=== PATIENT | male | born 1965 | race Caucasian/White ===

== ENCOUNTER 2018-03-13 10:18 | Emergency (ER) | payer OTHER, BC ==
[~2018-03-13] VITALS: Ht 177.8 cm; Wt 83.9 kg
[2018-03-13] MEDS ORDERED: LANTUS100 UNIT/M SUBQ (10:27)
[2018-03-13] MEDS ORDERED: FENOFIBRATE160 MG PO (10:28)
[2018-03-13] MEDS ORDERED: GLUCOPHAGE1000 MG PO (10:28)
[2018-03-13] MEDS ORDERED: COZAAR 25 MG TA25 M1 PO (10:28)
[2018-03-13] MEDS ORDERED: VICTOZA0.6 MG/0.1 SUBQ (10:28)
[2018-03-13] MEDS ORDERED: FLEXERIL PO (11:14)
[2018-03-13] MEDS ORDERED: NAPROSYN500 MG PO (11:14)
[2018-03-13 11:51] VITALS: BP 129/91
== END 2018-03-13 11:52 | disposition home or self-care (01) ==
LOC: M.ERS 10:18
DX: S39.82XA Other specified injuries of lower back, initial encounter (principal); E11.9 Type 2 diabetes mellitus without complications; E78.5 Hyperlipidemia, unspecified; Z79.4 Long term (current) use of insulin; V49.49XA Driver injured in collision with other motor vehicles in traffic accident, initial encounter; Y93.89 Activity, other specified; Y92.89 Other specified places as the place of occurrence of the external cause; Y99.8 Other external cause status

== ENCOUNTER 2018-04-30 19:01 | Inpatient (IN) | payer BC ==
[~2018-04-30] VITALS: Ht 177.8 cm; Wt 88.0 kg
[~2018-04-30 19:01] MED LIST: COZAAR 25 MG TA25 M1 PO; FENOFIBRATE160 MG PO; FLEXERIL PO; GLUCOPHAGE1000 MG PO; LANTUS100 UNIT/M SUBQ; NAPROSYN500 MG PO; VICTOZA0.6 MG/0.1 SUBQ
[2018-04-30 19:10] VITALS: BP 168/91
[2018-04-30] MEDS ORDERED: OMEPRAZOLE20 M2 PO (19:20)
[2018-04-30 19:52] LABS: HEMATOCRIT 45.2 % (42.0-52.0); HEMOGLOBIN 16.4 gm/dL (14.0-18.0); MCH 30.4 pg (26.0-34.0); MCHC 36.3 g/dL (28.0-37.0); MCV 83.6 fL (80.0-100.0); MPV 10.4 fl. (7.2-11.1); NUCLEATED RBCS 1 /100WBC; PLATELET COUNT* 223 thou/uL (150-400); RBC 5.41 mil/uL (4.50-6.00); RDW-CV 14.8 % (10.5-14.5); WBC 6.3 thou/uL (4.0-11.0)
[2018-04-30 20:29] LABS: ABSOLUTE LYMPHOCYTES 1.6 thou/uL (0.8-5.3); ABSOLUTE MONOCYTES 0.2 thou/uL (0.0-1.2); ABSOLUTE NEUTROPHILS 4.5 thou/uL (1.6-8.1); METAMYELOCYTES 1 %; MYELOCYTES 2 %
[2018-04-30 20:31] LABS: PLATELET ESTIMATE ADEQUATE
[2018-04-30 20:38] LABS: LIPASE 86 U/L (73-393); NT-PRO BRAIN NAT PEPTIDE 230 pg/mL (<300); TROPONIN-I LEVEL <0.06 ng/mL (<0.06)
[2018-04-30 20:52] LABS: ANION GAP 15 mmol/L (7-16); BUN 18 mg/dL (7-18); CHLORIDE 98 mmol/L (98-107); CO2 23 mmol/L (21-32); CREATININE 0.5 mg/dL (0.6-1.3); GLUCOSE 376 mg/dL (70-99); SGOT 76 U/L (15-37); TOTAL BILIRUBIN 0.5 mg/dL (<0.1-1.0)
[2018-04-30 20:53] LABS: ALBUMIN 3.4 g/dL (3.4-5.0); ALKALINE PHOSPHATASE 63.6 U/L (46-116); SGPT 34.8 U/L (30-65); TOTAL PROTEIN 6.2 g/dL (6.4-8.2)
[2018-04-30 20:54] LABS: SODIUM 135.6 mmol/L (136-145)
[2018-04-30 20:58] LABS: POTASSIUM 6.4 mmol/L (3.5-5.1)
[2018-04-30 21:43] LABS: URINE BILIRUBIN NEGATIVE (Negative); URINE BLOOD NEGATIVE (Negative); URINE CLARITY CLEAR; URINE COLOR YELLOW; URINE GLUCOSE-RANDOM 3+ (Negative); URINE KETONES 2+ (Negative); URINE LEUKOCYTES-REFLEX NEGATIVE (Negative); URINE NITRITE-REFLEX NEGATIVE (Negative); URINE PROTEIN NEGATIVE (Negative); URINE UROBILINOGEN 0.2 E.U./dl (0.2-1.0)
[2018-04-30 21:59] LABS: POTASSIUM 4.2 mmol/L (3.5-5.1)
[2018-04-30 22:01] LABS: CREATININE 0.5 mg/dL (0.6-1.3)
[2018-04-30 23:10] VITALS: BP 156/95
[2018-04-30 23:30] VITALS: BP 157/90
[2018-05-01 01:21] LABS: HEMATOCRIT 41.6 % (42.0-52.0); HEMOGLOBIN 17.6 gm/dL (14.0-18.0); MCH 35.7 pg (26.0-34.0); MCHC 42.2 g/dL (28.0-37.0); MCV 84.6 fL (80.0-100.0); MPV 9.7 fl. (7.2-11.1); RBC 4.92 mil/uL (4.50-6.00); RDW-CV 14.5 % (10.5-14.5); WBC 6.2 thou/uL (4.0-11.0)
[2018-05-01 04:00] VITALS: BP 153/88
[2018-05-01 04:24] LABS: CREATININE 0.5 mg/dL (0.6-1.3)
[2018-05-01 04:25] LABS: CALCIUM 8.3 mg/dL (8.5-10.1); TOTAL BILIRUBIN 0.5 mg/dL (<0.1-1.0); TOTAL PROTEIN 5.8 g/dL (6.4-8.2)
[2018-05-01 04:26] LABS: ALBUMIN 3.4 g/dL (3.4-5.0)
[2018-05-01 08:00] VITALS: BP 149/91
[2018-05-01 12:56] VITALS: BP 144/99
[2018-05-01 14:33] LABS: CHOLESTEROL 318 mg/dL (<200); HDL CHOLESTEROL 19 mg/dL (>40); TC:HDL 16.7 Ratio (Not establshd); TRIGLYCERIDE 2575 mg/dL (<150); TROPONIN-I LEVEL <0.06 ng/mL (<0.06); VLDL 515 mg/dL (<40)
[2018-05-01 14:38] LABS: LDL CHOLESTEROL ND mg/dL (<100)
[2018-05-01 14:39] LABS: SERUM ASSESSMENT Gross Lipemia
[2018-05-01 15:23] LABS: AMP/METHAMP Negative (Negative); BARBITURATES Negative (Negative); BENZODIAZEPINES Negative (Negative); COCAINE Negative (Negative); METHADONE Negative (Negative); OPIATES Negative (Negative); PCP Negative (Negative); THC Negative (Negative)
[2018-05-01 16:35] VITALS: BP 127/88
[2018-05-01 17:07] LABS: GLYCOHEMOGLOBIN (HGB A1C) 9.8 % (4.8-5.6)
[2018-05-01 20:00] VITALS: BP 133/86
[2018-05-02] VITALS: BP 124/80
[2018-05-02 04:05] VITALS: BP 122/77
[2018-05-02 05:06] LABS: ABSOLUTE BASOPHILS 0.1 thou/uL (0.0-0.2); ABSOLUTE EOSINOPHILS 0.1 thou/uL (0.0-0.7); ABSOLUTE LYMPHOCYTES 1.3 thou/uL (0.8-5.3); ABSOLUTE MONOCYTES 0.4 thou/uL (0.0-1.2); BASOPHILS 0.9 %; EOSINOPHILS 1.9 %; HEMATOCRIT 43.4 % (42.0-52.0); LYMPHOCYTES 21.7 %; MCH 29.3 pg (26.0-34.0); MCHC 35.2 g/dL (28.0-37.0); MCV 83.3 fL (80.0-100.0); MPV 9.5 fl. (7.2-11.1); NUCLEATED RBCS 0 /100WBC; PLATELET COUNT* 161 thou/uL (150-400); POLYS 68.5 %; RBC 5.21 mil/uL (4.50-6.00); RDW-CV 14.7 % (10.5-14.5); WBC 5.9 thou/uL (4.0-11.0)
[2018-05-02 05:14] LABS: HEMOGLOBIN 15.3 gm/dL (14.0-18.0)
[2018-05-02 05:26] LABS: CALCIUM 7.6 mg/dL (8.5-10.1); CREATININE 0.8 mg/dL (0.6-1.3); POTASSIUM 3.9 mmol/L (3.5-5.1)
[2018-05-02 11:35] VITALS: BP 121/72
[2018-05-02 16:34] VITALS: BP 127/78
[2018-05-02 20:00] VITALS: BP 120/72
[2018-05-03] VITALS (17 sets, daily range): BP systolic 105–158; BP diastolic 63–95
--- NOTE | 2018-05-03 11:28 | EKG ---
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
--- NOTE | 2018-05-03 16:42 | 2DMMODE ---
[place] [address] 2 D/M-MODE ECHOCARDIOGRAM Name: LEONARDCHI GRECO Room: [address] IN .R.#: [id number] Admission: 04/30/18 Attend Phys: Nolberto Ramirez, Discharge: Date of : 67 Date of Service: 05/03/18 1642 Report #: [id number] THIS REPORT FOR: //name// APPROVED REPORT Study performed: 05/03/2018 14:13:09 EXAM: Comprehensive 2D, Doppler, and color-flow Echocardiogram Patient Location: Bedside BSA: 2.06 HR: 85 bpm BP: 131/89 mmHg Other Information Study Quality: Fair Indications Chest Pain 2D Dimensions LVEF(%): 51.95 (>50%) IVSd: 14.21 (7-11mm) LVOT Diam: 18.72 (18-24mm) LVDd: 38.32 mm PWd: 10.63 (7-11mm) Ascending Ao: 34.43 (22-36mm) LVDs: 28.31 (25-40mm) Aortic Root: 28.85 mm Simeon's LVEF: 51.95 % Volumes Left Atrial Volume (Systole) LA ESV Index: 15.80 mL/m2 Aortic Valve AoV Peak Cooper.: 1.05 m/s AO Peak Gr.: 4.45 mmHg LVOT Max P.63 mmHg AO Mean Gr.: 2.69 mmHg LVOT Mean P.16 mmHg LVOT Max V: 0.81 m/s AO V2 VTI: 17.13 cm LVOT Mean V: 0.49 m/s ISAIAH (VTI): 2.10 cm2 LVOT V1 VTI: 13.08 cm Mitral Valve E/A Ratio: 0.88 MV Decel. Time: 248.63 ms MV E Max Cooper.: 0.72 m/[place] [address] 2 D/M-MODE ECHOCARDIOGRAM Name: CHI SANTIAGO Room: [address] IN [facility]#: [id number] Admission: 04/30/18 Attend Phys: Nolberto Ramirez, Discharge: Date of : 67 Date of Service: 05/03/18 1642 Report #: [id number] MV PHT: 72.10 ms MVA (PHT): 3.05 cm2 TDI E/Lateral E': 8.00 E/Medial E': 9.00 Medial E' Cooper.: 0.08 m/s Lateral E' Cooper.: 0.09 m/s Pulmonary Valve PV Peak Cooper.: 0.84 m/s PV Peak Gr.: 2.81 mmHg Tricuspid Valve RAP Estimate: 5.00 mmHg TR Peak Gr.: 7.12 mmHg RVSP: 12.12 mmHg PA Pressure: 12.12 mmHg Left Ventricle The left ventricle is normal size. There is normal LV segmental wall motion. There is normal left ventricular wall thickness. Left ventricular systolic function is normal. The left ventricular ejection fraction is within the normal range. LVEF is 60-65%. Grade I - abnormal relaxation pattern. Right Ventricle The right ventricle is normal size. The right ventricular systolic function is normal. Atria The left atrium size is normal. The right atrium size is normal. Aortic Valve The aortic valve is normal in structure. No aortic regurgitation is present. There is no aortic valvular stenosis. Mitral Valve The mitral valve is normal in structure. There is no mitral valve regurgitation noted. No evidence of mitral valve stenosis. Tricuspid Valve The tricuspid valve is normal in structure. Trace tricuspid regurgitation. Pulmonic Valve The pulmonary valve is normal in structure. There is no pulmonic [place] [address] 2 D/M-MODE ECHOCARDIOGRAM Name: CHI SANTIAGO Room: [address] IN ..#: [id number] Admission: 04/30/18 Attend Phys: Nolberto Ramirez, Discharge: Date of : 67 Date of Service: 05/03/18 1642 Report #: [id number] Great Vessels The aortic root is normal in size. IVC is normal in size and collapses with >50% inspiration Pericardium There is no pericardial effusion. <Conclusion> The left ventricle is normal size. There is normal left ventricular wall thickness. Left ventricular systolic function is normal. The left ventricular ejection fraction is within the normal range. LVEF is 60-65%. Grade I - abnormal relaxation pattern. The right ventricle is normal size. The left atrium size is normal. The aortic valve is normal in structure. The mitral valve is normal in structure. The tricuspid valve is normal in structure. IVC is normal in size and collapses with >50% inspiration There is no pericardial effusion. There is normal LV segmental wall motion. <ELECTRONICALLY SIGNED> By: Farhan Lucio MD, FACC 05/03/181641 41 41 Farhan Lucio MD, FACC /INF
--- NOTE | 2018-05-03 18:37 | EKG ---
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 : 1965 Requested By: Nolberto Ramirez Order Number: [id number] Reading MD: Farhan Lucio Measurements Intervals [place] Rate: 99 P: 50 [place]: 173 QRS: -61 QRSD: 136 T: 19 QT: 396 QTc: 509 Interpretive Statements Sinus rhythm Nonspecific IVCD with LAD Baseline wander in lead(s) I,II,III,aVR,V3 No previous ECG available for comparison Electronically Signed On 05-03-2018 18:37:29 CDT by Farhan Lucio [email or web address] <ELECTRONICALLY SIGNED> By: Farhan Lucio MD, [facility] 05/03/18 1837 1339 1339 Farhan Lucio MD, [facility] /EPI
--- NOTE | 2018-05-03 18:45 | EKG ---
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1965 Requested By: Farhan Lucio Order Number: [id number] Wagner MD: Farhan Lucio Measurements Intervals [place] Rate: 80 P: 46 [place]: 178 QRS: -33 QRSD: 125 T: 14 QT: 404 QTc: 466 Interpretive Statements Sinus rhythm IVCD, consider atypical RBBB Compared to ECG 04/30/2018 19:07:42 Left anterior fascicular block no longer present Electronically Signed On 05-03-2018 18:44:56 CDT by Farhan Lucio [email or web address] <ELECTRONICALLY SIGNED> By: Farhan Lucio MD, [facility] 05/03/18 1844 1501 1501 Farhan Lucio MD, [facility] /EPI
[2018-05-04] VITALS (10 sets, daily range): BP systolic 113–159; BP diastolic 61–85
[2018-05-04 05:41] LABS: HEMATOCRIT 42.9 % (42.0-52.0); HEMOGLOBIN 14.5 gm/dL (14.0-18.0); MCH 28.6 pg (26.0-34.0); MCHC 33.7 g/dL (28.0-37.0); MCV 84.9 fL (80.0-100.0); MPV 9.8 fl. (7.2-11.1); RBC 5.06 mil/uL (4.50-6.00); RDW-CV 14.7 % (10.5-14.5); WBC 4.7 thou/uL (4.0-11.0)
[2018-05-04 05:42] LABS: CALCIUM 8.6 mg/dL (8.5-10.1); CREATININE 0.7 mg/dL (0.6-1.3); POTASSIUM 3.5 mmol/L (3.5-5.1); TOTAL BILIRUBIN 0.5 mg/dL (<0.1-1.0); TOTAL PROTEIN 6.1 g/dL (6.4-8.2); TROPONIN-I LEVEL 0.24 ng/mL (<0.06)
--- NOTE | 2018-05-04 10:38 | EKG ---
[place] [address] ELECTROCARDIOGRAM REPORT Name: CHI SANTIAGO Room: [address] ADM IN M.R.#: [id number] Admission: 04/30/18 Attend Phys: Nolberto Ramirez MD Discharge: Date of : 67 Report #: [id number] THIS REPORT FOR: //name// 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
[2018-05-04] MEDS ORDERED: ASPIR 8181 MG PO (10:40)
[2018-05-04] MEDS ORDERED: EFFIENT10 MG PO (10:41)
[2018-05-04] MEDS ORDERED: NITROGLYCERIN0.4 MG SUBLING (10:42)
[2018-05-04] MEDS ORDERED: ATORVASTATIN CA40 MG PO (10:44)
--- NOTE | 2018-05-04 13:11 | CARD ---
[address] [address] CARDIAC CATH REPORT Name: CHI SANTIAGO Room: [address] IN .R.#: [id number] Admission: 04/30/18 Attend Phys: Nolberto Ramirez MD Discharge: Date of : 67 Report #: [id number] THIS REPORT FOR: //name// APPROVED REPORT Study performed: 05/03/2018 11:07:20 Patient Details Patient Status: In-Patient Room #: The patient is a 53 year-old male Event Personnel Farhan Lucio Gear Shaper Set Up Operator, Tammy Gates Network Infrastructure Architect, Awa Palomares, Martina Flynn RTDestiny Scrub Procedures Performed Art Access - R femoral artery* , Left Heart CatheterizationLeft Heart Cath w/or w/o Coronaries [id number] [facility] w/wo Plasty Single CIRC [id number] [facility] [address] w/wo Plasty Single RCA [id number] Indication Unstable angina Risk Factors Family History, Hypercholesterolemia, Hypertension Admission/Lab Medications/Medications given during procedure Platelet Aff. Inhib., Heparin Unfract. Procedure Narrative The patient was brought electively to the Cardiac Catheterization Laboratory and was prepped and draped in a sterile manner. The right femoral was infiltrated with 2% Lidocaine subcutaneous anesthesia. A 6fr Ultimum Sheath sheath was inserted into the right femoral artery. Coronary angiography was performed using coronary diagnostic catheters. The right coronary system was accessed and visualized with a 6fr JR 4 catheter. The left coronary system was accessed and visualized with a 6fr JL 4 catheter. The left ventricle was accessed and visualized with a 6fr Straight pigtail catheter. Left ventricular/Aortic Valve gradient assessed via catheter pullback. Left ventriculogram was performed in BHATIA projection. Pre-demployment femoral angiogram was performed . Closure device was deployed with a 6 Fr Angioseal STS 6Fr. The patient tolerated the procedure well and there were no complications associated with the [place] [address] CARDIAC CATH REPORT Name: CHI SANTAIGO Room: [address] IN [facility]#: [id number] Admission: 04/30/18 Attend Phys: Nolberto Ramirez MD Discharge: Date of : 67 Report #: [id number] no hematoma. Intraoperative Conscious Sedation Sedation start time: 11:35 Case end Time: 13:30 Fentanyl 75 mcg Versed 3 mg Fluoro Time: 28 minutes Dose: DAP 890030 cGycm2 5130.94 mGy Contrast Type and Amount: Visipaque 575 ml Diagnostic Cath Left Main 0% narrowing LAD 75% mid vessel stenosis with 80% stenosis just distal to a prominent diagonal branch Circumflex 100% mid vessel occlusion with recanalization and ZACK 1 flow to the distal circumflex Right Coronary 70% mid vessel narrowing with 80-90% tubular distal stenosis Hemodynamics The aortic pressure is 128/69 mmHg with a mean of mmHg. The left ventricular pressure is 119/-1 mmHg with a mean of mmHg. The left ventricular end diastolic pressure is 5 mmHg. There was no gradient across the aortic valve upon pullback. PCI Technique Lesion Percutaneous coronary intervention was performed on the mid circumflex artery segment. The lesion stenosis prior to intervention was 100% with ZACK 1 flow. A 6FR LAUNCHER EBU 3.5 Guide Catheter was used to engage the LCA ostium. A IG: ProwaterFlex 180CM Interventional Guidewire was used to cross the lesion. BALLOON DILATION A Balloon catheter Mini Trek RX 2.0 X 12 was inserted and inflated up to 8.00atm for 12seconds. STENT DEPLOYMENT A drug-eluting stent Xience Alpine RX 2.25X15 was inserted and inflated up to 6.00atm for 10seconds. Additional Inflation: 6.00atm for 9seconds. Final angiography reveals 10 % stenosis with ZACK 3 [place] [address] CARDIAC CATH REPORT Name: CHI SANTIAGO Room: [address] IN [facility].#: [id number] Admission: 04/30/18 Attend Phys: Nolberto Ramirez MD Discharge: Date of : 67 Report #: [id number] This was a chronic total occlusion of the mid circumflex with recannulization of and deployment of a single drug-eluting stent with ZACK-3 flow the distal vessel following final stent deployment PCI Technique Lesion 3 Percutaneous Coronary Intervention was performed on the distal right coronary artery. The lesion stenosis prior to intervention was 90% with ZACK 3 flow. A 6F JR 4.0 Guide Catheter was used to engage the RCA ostium. A IG: ProwaterFlex 180CM Interventional Guidewire was used to cross the lesion. Balloon Dilation A Balloon catheter Trek RX 2.5 X 12 was inserted and inflated up to 7.00atm for 10seconds. Stent Deployment A drug-eluting stent Xience Alpine RX 2.5X28 was inserted and inflated up to 8.00atm for 11seconds. Post Stent Deployment Balloon Dilation A Balloon catheter NC Trek RX 2.75 X 12 was inserted and inflated up to 14.00atm for 8seconds. Additional Inflation: 16.00atm for 8seconds. Additional Inflation: 15.00atm for 11seconds. Final angiography reveals 0 % stenosis with ZACK 3 flow. PCI Technique Lesion 4 Percutaneous Coronary Intervention was performed on the mid right coronary artery. The lesion stenosis prior to intervention was 70% with ZACK 3 flow. A 6F JR 4.0 Guide Catheter was used to engage the ostium. A IG: ProwaterFlex 180CM Interventional Guidewire was used to cross the lesion. Balloon Dilation A Balloon catheter NC Trek RX 3.0 X 15 was inserted and inflated up to 14.00atm for 10seconds. Additional Inflation: 16.00atm for 11seconds. Additional Inflation: 16.00atm for 8seconds. Stent Deployment A drug-eluting stent Xience Alpine RX 3.0X23 was inserted and inflated up to 16.00atm for 15seconds. Additional Inflation: 18.00atm for 12seconds. Final angiography reveals 10 % stenosis with ZACK [address] [address] CARDIAC CATH REPORT Name: CHI SANTIAGO Room: [address] IN M.R.#: [id number] Admission: 04/30/18 Attend Phys: Nolberto Ramirez MD Discharge: Date of : 67 Report #: [id number] Conclusion #1 significant coronary artery disease characterized by the following: A 75% proximal and 80% mid LAD stenosis B nondominant circumflex with 100% mid vessel occlusion with ZACK 1 flow to the reconstituted distal circumflex C large dominant right coronary artery with 70% tubular mid vessel narrowing and 90% stenosis of the distal right coronary artery before the bifurcation into posterior lateral and posterior descending branches #2 normal left ventricular systolic function, estimated ejection fraction being 65% #3 normal left-sided hemodynamic study #4 successful percutaneous coronary intervention at the site of chronic total occlusion of the mid circumflex with lutheran of ZACK-3 flow to the distal vessel with 10% residual narrowing following stent deployment #5 successful percutaneous coronary intervention at the sites of 70 percent mid and 90% tubular distal right coronary stenosis with 10 and 0% residual narrowing following stent deployment and ZACK-3 flow to the distal vessel Recommendations Cardiac Risk Reduction Program Aggressive Medical Therapy Medications Administered Aspirin (any) Prasugrel Diagnostic Cath Approved by: Farhan Lucio MD Date/Time: 05/04/18 at 1307 hrs. <ELECTRONICALLY SIGNED> By: Farhan Lucio MD, FACC 05/04/18 1311 131 1311Farhan Lucio MD, FACC /INF
[2018-05-05] VITALS (20 sets, daily range): BP systolic 108–136; BP diastolic 65–94
[2018-05-05 05:07] LABS: CALCIUM 8.7 mg/dL (8.5-10.1); CREATININE 0.7 mg/dL (0.6-1.3); POTASSIUM 4.1 mmol/L (3.5-5.1)
--- NOTE | 2018-05-05 15:06 | EKG ---
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
[2018-05-06] VITALS: BP 128/82
[2018-05-06 04:00] VITALS: BP 144/85
[2018-05-06 04:48] LABS: HEMATOCRIT 38.6 % (42.0-52.0); MCH 28.6 pg (26.0-34.0); MCHC 33.6 g/dL (28.0-37.0); MCV 85.1 fL (80.0-100.0); MPV 9.5 fl. (7.2-11.1); RBC 4.53 mil/uL (4.50-6.00); RDW-CV 14.5 % (10.5-14.5); WBC 4.6 thou/uL (4.0-11.0)
[2018-05-06 05:55] LABS: ALBUMIN 3.1 g/dL (3.4-5.0); CALCIUM 8.7 mg/dL (8.5-10.1); CREATININE 0.7 mg/dL (0.6-1.3); POTASSIUM 3.7 mmol/L (3.5-5.1); TOTAL BILIRUBIN 0.6 mg/dL (<0.1-1.0); TROPONIN-I LEVEL 0.14 ng/mL (<0.06)
[2018-05-06 08:00] VITALS: BP 120/87
[2018-05-06 10:31] VITALS: BP 122/81
[2018-05-06 10:39] VITALS: BP 122/81
[2018-05-06 10:43] VITALS: BP 122/81
--- NOTE | 2018-05-07 12:39 | EKG ---
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[place] : 1965 Requested By: Farhan Lucio Order Number: [id number] Wagner MD: Bassem Palafox Measurements Intervals [place] Rate: 82 P: 47 MD: 174 QRS: -28 QRSD: 129 T: 13 QT: 405 QTc: 473 Interpretive Statements Sinus rhythm IVCD, consider atypical RBBB Compared to ECG 05/05/2018 13:08:39 No significant changes Electronically Signed On 05-07-2018 12:39:23 CDT by Bassem Palafox [email or web address] <ELECTRONICALLY SIGNED> By: Bassem Palafox MD, [facility] 05/07/18 1239 0337 0337 Bassem Palafox MD, [facility] /EPI
--- NOTE | 2018-05-08 11:43 | CARD ---
[address] [address] CARDIAC CATH REPORT Name: CHI SANTIAGO Room: [address] IN ..#: [id number] Admission: 04/30/18 Attend Phys: Nolberto Ramirez MD Discharge: 05/06/18 Date of : 67 Report #: [id number] THIS REPORT FOR: //name// APPROVED REPORT Study performed: 05/05/2018 08:27:29 Patient Details Patient Status: In-Patient Room #: The patient is a 53 year-old male Event Personnel Farhan Lucio Family [employer] Consumer Sciences Teacher, Roz Posey RN Supervisor Metal Placing, Awa Palomares Monitor, Ted Estrada (R) Scrub Procedures Performed Art Access - L femoral artery* Left Heart Cath w/or w/o Coronaries [id number] [facility] [facility] w/wo Plasty Single LAD 171569 Indication Unstable angina Risk Factors Family History, Hypercholesterolemia, Hypertension Previous Procedures/Diagnoses Previous PCI Admission/Lab Medications/Medications given during procedure Platelet Aff. Inhib., Angiomax bolus and infusion Procedure Narrative The patient was brought electively to the Cardiac Catheterization Laboratory and was prepped and draped in a sterile manner. The left femoral was infiltrated with 2% Lidocaine subcutaneous anesthesia. A 6fr Ultimum Sheath sheath was inserted into the left femoral artery. Coronary angiography was performed using coronary diagnostic catheters. The right coronary system was accessed and visualized with a 6fr JR 4 catheter. The left coronary system was accessed and visualized with a 6fr JL 4 catheter. The left ventricle was accessed and visualized with a 6fr Straight Pigtail catheter. Left ventricular/Aortic Valve gradient assessed via catheter pullback. Pre-demployment femoral angiogram was performed . [place] [address] CARDIAC CATH REPORT Name: LEONARDDUSTIN GRECOIN Room: [address]#: [id number] Admission: 04/30/18 Attend Phys: Nolberto Ramirez MD Discharge: 05/06/18 Date of : 67 Report #: [id number] deployed with a 6 Fr Angioseal STS 6Fr. The patient tolerated the procedure well and there were no complications associated with the procedure. Intraoperative Conscious Sedation Sedation start time: 09:41 Case end Time: 10:45 Fentanyl 100 mcg Versed 1 mg Fluoro Time: 11.9 minutes Dose: DAP 985165 cGycm2 1879.20 mGy Contrast Type and Amount: Visipaque 400 ml Coronary Angiography The patient's coronary anatomy is right dominant. Diagnostic Cath Left Main 0% narrowing LAD 75% proximal stenosis with 80% mid vessel stenosis Circumflex 40% proximal narrowing with widely patent mid vessel stent Right Coronary Dominant vessel with widely patent mid and distal stents Left Ventriculography Left Ventriculography was not performed. Hemodynamics The aortic pressure is 123/70 mmHg with a mean of mmHg. The left ventricular pressure is 112/-2 mmHg with a mean of mmHg. The left ventricular end diastolic pressure is 6 mmHg. Pullback from the left ventricle to the aorta revealed no gradient across the aortic valve. PCI Technique Lesion Percutaneous coronary intervention was performed on the proximal left anterior descending artery segment. The lesion stenosis prior to intervention was 75% with ZACK 3 flow. A 6FR JL 4.0 Guide Catheter was used to engage the LCA ostium. A IG: ProwaterFlex 180CM Interventional Guidewire was used to cross the lesion. STENT DEPLOYMENT A drug-eluting stent Xience Alpine RX 2.5X18 was inserted and inflated up to 12.00atm for 12seconds. Additional Inflation: 16.00atm for 7seconds. Additional Inflation: 17.00atm for 11seconds. [place] [address] CARDIAC CATH REPORT Name: CHI SANTIAGO Room: [address]#: [id number] Admission: 04/30/18 Attend Phys: Nolberto Ramirez MD Discharge: 05/06/18 Date of : 67 Report #: [id number] POST STENT DEPLOYMENT BALLOON DILATION A Balloon catheter NC Trek RX 2.75 X 12 was inserted and inflated up to 16.00atm for 11seconds. Additional Inflation: 18.00atm for 10seconds. Additional Inflation: 14.00atm for 8seconds. Final angiography reveals 10 % stenosis with ZACK 3 flow. PCI Technique Lesion 2 Percutaneous coronary intervention was performed on the mid left anterior descending artery segment. The lesion stenosis prior to intervention was 80% with ZACK 3 flow. A 6FR JL 4.0 Guide Catheter was used to engage the ostium. A IG: ProwaterFlex 180CM Interventional Guidewire was used to cross the lesion. Balloon Dilation A Balloon catheter Trek RX 2.5 X 12 was inserted and inflated up to 8atm for 12seconds. Additional Inflation: 11atm for 8seconds. Additional Inflation: 12atm for 9seconds. Stent Deployment A drug-eluting stent Xience Alpine RX 2.5X15 was inserted and inflated up to 12atm for 12seconds. Additional Inflation: 16atm for 7seconds. Additional Inflation: 17atm for 11seconds. Final angiography reveals 0 % stenosis with ZACK 3 flow. Conclusion #1 significant coronary artery disease characterized by following: A 75% proximal with 80% mid LAD stenosis B nondominant circumflex with 40% proximal narrowing and a widely patent mid vessel stent C dominant right coronary artery with widely patent mid and distal stents #2 normal left-sided hemodynamics study #3 successful percutaneous coronary intervention with deployment of sequential drug-eluting stents at the sites of 75% proximal and 80% mid LAD stenosis with 10 and 0% residual narrowing following stent deployment and ZACK-3 [place] [address] CARDIAC CATH REPORT Name: CHI SANTIAGO Room: [address]#: [id number] Admission: 04/30/18 Attend Phys: Nolberto Ramirez MD Discharge: 05/06/18 Date of : 67 Report #: [id number] Recommendations Cardiac Risk Reduction Program Aggressive Medical Therapy Medications Administered Aspirin (any) Prasugrel Diagnostic Cath Approved by: Farhan Lucio MD Date/Time: 05/08/18 1143 hrs. <ELECTRONICALLY SIGNED> By: Farhan Lucio MD, FACC 05/08/181142 42 42Farhan Lucio MD, FACC /INF
--- NOTE | 2018-05-12 16:12 | CON ---
[address] [address] CONSULTATION Name: CHI SANTIAGO Room: [address] IN M.R.#: [id number] Admission: 04/30/18 Attend Phys: Nolberto Ramirez MD Discharge: 05/06/18 Date of : 67 Report #: [id number] THIS REPORT FOR: //name// CC: Nolberto Mendez HISTORY OF PRESENT ILLNESS: I was asked by Dr. Ramirez to see this 53-year-old white male in cardiology consultation for evaluation and treatment of chest pain. This man has multiple coronary risk factors including insulin-dependent diabetes mellitus, hyperlipidemia, essential hypertension, family history of coronary artery disease, and past history of smoking. He quit 20 years ago. He is not a particularly good historian. He began having chest discomfort on night when he had some spicy food. He describes the discomfort as a tightness in the chest or like someone standing on his chest. He says the discomfort is a 6 or 7 on a scale of 10. The discomfort is not particularly worse with activity or better with rest. It occurs at rest. He has had pain almost continuously since then, although it has dropped to a lower level of a 3 or 4 on a scale of 10. He says activity makes his pain better. It is not really better with rest. It does occur at rest. It is not associated with shortness of breath, nausea, vomiting or diaphoresis. It is not clearly aggravated by food, although it occurred after eating spicy food. It is not relieved with food. He has not had nitroglycerin although he was about to get some. The pain does not radiate. He does not have issues with dyspnea on exertion, shortness of breath at rest, orthopnea, PND or edema. He has not had syncope. Coronary risk factors are as described above. He quit smoking 20 years ago. He does have hypercholesterolemia, diabetes, high blood pressure. Family history of coronary artery disease. His father had stents. He does not have any renal disease. He has not had peripheral vascular disease or carotid disease or claudication. He has no previous history of heart problems. He has not had any open or nonhealing wounds. He has no other current medical problems other than those described above. He has not had surgery. He does have hayfever, but no allergies. MEDICATIONS: Include fenofibrate 160 mg daily; insulin, he does not know the dose that he takes at bedtime, it is Lantus. He is on losartan 25 mg daily and omeprazole 20 mg daily. He does have a history of GERD and actually history of esophageal spasm. He has a lot of trouble with swallowing food at times and it sticks in his throat. REVIEW OF SYSTEMS: Positive for chest discomfort, diabetes, reflux, wearing glasses. Otherwise, his review of systems is negative for some 45 different complaints in 14 different system categories. Please see our review of system form for details and negatives in review of systems. SOCIAL HISTORY: He is . 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 He has alcohol only occasionally. Does not smoke, does [place] [address] CONSULTATION Name: CHI SANTIAGO Room: [address] [place] [facility]#: [id number] Admission: 04/30/18 Attend Phys: Nolberto Ramirez MD Discharge: 05/06/18 Date of : 67 Report #: [id number] FAMILY HISTORY: His father had stents with diabetes, uncles with coronary artery disease. There is no family history of sudden . PHYSICAL EXAMINATION: GENERAL: He presents as a well-developed, well-nourished white male, in no acute distress. VITAL SIGNS: His pulse is 89 and regular, blood pressure 153/88, respirations 16 and regular, temperature is 98 degrees. HEENT: His head is atraumatic. Eyes clear. NECK: Supple. There is no jugular venous distention or hepatojugular reflux. Thyroid is not enlarged. There is no adenopathy. SKIN: Warm and dry. Mucous membranes are moist. LUNGS: Clear to auscultation and percussion. HEART: Revealed normal first and second heart sounds. There is soft S4. There is no S3. There are no murmurs, rubs, thrills, heaves or gallops. PMI is nondisplaced. ABDOMEN: Soft, flat, nontender, no palpable masses, no organomegaly. EXTREMITIES: Reveal no cyanosis, clubbing or edema. NEUROLOGIC: The patient mentated normally, talked normally, moved all extremities normally. LABORATORY DATA: His EKG initially showed sinus rhythm with a right bundle branch block and left axis deviation and left anterior fascicular block. Today, it shows sinus rhythm with an IVCD. There is no sharifa ischemia present. There are some nonspecific ST-T abnormalities. Troponins are negative x 3, although they were only about 5 hours apart. Another troponin is pending. IMPRESSION: 1. Chest pain that may well represent an ischemic syndrome. 2. Hyperlipidemia. 3. Insulin-dependent diabetes mellitus. 4. Essential hypertension. 5. Family history of coronary artery disease. 6. Past history of smoking. RECOMMENDATION: He is to have a stress test and an echo. Thank you very much for asking me to see the patient and if there are any questions, please feel free to contact me. <ELECTRONICALLY SIGNED> By: Tanisha Valdovinos MD, FACC 05/12/18 1612 [id number]. Georgi Valdovinos MD, FAC /nt
== END 2018-05-06 11:32 | disposition home or self-care (01) | DRG 247 ==
LOC: M.ERS 19:01 → M.TBA-ER 21:57 → M.2W 21:57
PROVIDERS: Emergency Medicine; Internal Medicine; ADMIT Internal Medicine
PROC: B211YZZ Fluoroscopy of Multiple Coronary Arteries using Other Contrast (ICD-10-PCS; principal; 2018-05-04)
PROC: 4A023N7 Measurement of Cardiac Sampling and Pressure, Left Heart, Percutaneous Approach (ICD-10-PCS; principal; 2018-05-04)
PROC: 027135Z Dilation of Coronary Artery, Two Arteries with Two Drug-eluting Intraluminal Devices, Percutaneous Approach (ICD-10-PCS; principal; 2018-05-04)
PROC: B211YZZ Fluoroscopy of Multiple Coronary Arteries using Other Contrast (ICD-10-PCS; 2018-05-05)
PROC: 027034Z Dilation of Coronary Artery, One Artery with Drug-eluting Intraluminal Device, Percutaneous Approach (ICD-10-PCS; 2018-05-05)
PROC: 4A023N7 Measurement of Cardiac Sampling and Pressure, Left Heart, Percutaneous Approach (ICD-10-PCS; 2018-05-05)
DX: I25.110 Atherosclerotic heart disease of native coronary artery with unstable angina pectoris (principal); E87.1 Hypo-osmolality and hyponatremia; E78.5 Hyperlipidemia, unspecified; K21.9 Gastro-esophageal reflux disease without esophagitis; E86.0 Dehydration; I10 Essential (primary) hypertension; F12.90 Cannabis use, unspecified, uncomplicated; E11.65 Type 2 diabetes mellitus with hyperglycemia; Z83.3 Family history of diabetes mellitus; Z87.891 Personal history of nicotine dependence; Z82.49 Family history of ischemic heart disease and other diseases of the circulatory system; Z79.4 Long term (current) use of insulin; Z79.899 Other long term (current) drug therapy